=== PATIENT | female | born 1955 | race Caucasian/White ===

== ENCOUNTER 2024-08-17 06:26 | Inpatient (IN) | payer MEDICARE, OTHER ==
[~2024-08-17] VITALS: Ht 167.6 cm; Wt 90.5 kg
[2024-08-17] MEDS ORDERED: LIDOCAINE 2%-EPI 1:200,000 20 ML VIAL IJ ONE (07:09)
[2024-08-17] MEDS ORDERED: OXYMETAZOLINE HCL NASAL SPRAY 30 ML BOTTLE NS ONE (07:09)
[2024-08-17] MEDS ORDERED: ANESTHESIA TRAY IN PYXIS 1 EA TRAY MC ONE (07:09)
[2024-08-17] MEDS ORDERED: LIDOCAINE 2%-EPI 1:100,000 30 ML VIAL ONE (07:10)
[2024-08-17] MEDS ORDERED: LIDOCAINE 1%-EPI 1:100,000 20 ML VIAL ONE (07:10)
[2024-08-17] MEDS ORDERED: dexaMETHasone SOD PHOSPHATE 2 ML ONE (07:10)
[2024-08-17] MEDS ORDERED: VANCOMYCIN 1 GM VIAL ONE (07:10)
[2024-08-17] MEDS ORDERED: FENTANYL PF 250MCG/5ML AMPUL ONE (07:14)
[2024-08-17] MEDS ORDERED: ROCURONIUM BROMIDE 50 MG/5 ML ONE (07:16)
[2024-08-17] MEDS ORDERED: ONDANSETRON HCL/PF 4 MG/2 ML VIAL IVP PRN ×2 (10:30→18:30)
[2024-08-17] MEDS ORDERED: ACETAMINOPHEN 325 MG TABLET PO PRN ×2 (10:30→18:30)
[2024-08-17] MEDS ORDERED: HYDROMORPHONE 1 MG/1 ML DISP.SYRIN IV PRN (10:30)
[2024-08-17] MEDS ORDERED: IV NS 0.9% 1,000 ML IV PRN (10:30)
[2024-08-17] MEDS ORDERED: ESCI10TA PO (11:52)
[2024-08-17] MEDS ORDERED: TELM1TAB34 PO (11:52)
[2024-08-17] MEDS ORDERED: ROSU10TA2 PO (11:52)
[2024-08-17] MEDS ORDERED: OMEP1CAP25 PO (11:52)
[2024-08-17] MEDS ORDERED: TRAM50TA2 PO (11:52)
[2024-08-17] MEDS ORDERED: ATEN25TA PO (11:52)
[2024-08-17] MEDS ORDERED: ERGO500040 PO (11:52)
[2024-08-17] MEDS ORDERED: LEVO100T9 PO (11:52)
[2024-08-17] MEDS ORDERED: AMLO10TA4 PO (11:52)
[2024-08-17] MEDS ORDERED: ASPI-1169 PO (11:52)
[2024-08-17] MEDS ORDERED: IBUP-1955 PO (11:52)
[2024-08-17] MEDS ORDERED: Z GUARD REMEDY 4 OZ OINT TP PRN (18:30)
[2024-08-17 20:00] VITALS: BP 111/77; TEMP 98.2; O2SAT 97
[2024-08-17] MEDS: VANCOMYCIN 1 GM in IV D5W 250ml IV SCH (20:23)
[2024-08-17] MEDS: ATORVASTATIN 40 MG TABLET PO SCH (21:41)
[2024-08-18] MEDS: LEVOTHYROXINE SODIUM 100 MCG TABLET PO SCH (06:39)
[2024-08-18] MEDS: PANTOPRAZOLE 40 MG TABLET.DR PO SCH (06:39)
[2024-08-18 07:08] LABS: EOSINOPHILS % (AUTO) 0.1 % (0.0-6.0); HEMATOCRIT 39 % (33-45); HEMOGLOBIN 13.2 g/dL (11.5-14.8); LYMPHOCYTES # (AUTO) 1.5 K/uL (0.8-4.8); LYMPHOCYTES % (AUTO) 17.8 % (20.0-44.0); MEAN CORPUSCULAR HEMOGLOBIN 29 PG (26.0-33.0); MEAN CORPUSCULAR HGB CONC 34 g/dl (31.0-36.0); MEAN CORPUSCULAR VOLUME 86 fL (82-100); MONOCYTES # (AUTO) 0.4 K/uL (0.1-1.30); MONOCYTES % (AUTO) 5.3 % (2.0-12.0); NEUTROPHILS # (AUTO) 6.5 K/uL (1.8-8.9); NEUTROPHILS % (AUTO) 76.8 % (43.0-81.0); PLATELET COUNT (AUTO) 269 K/uL (150-450); RED BLOOD CELL COUNT(AUTO) 4.57 MIL/uL (4.0-5.2); RED CELL DISTRIBUTION WIDTH 14.5 % (11.5-15.0); WHITE BLOOD COUNT (AUTO) 8.5 K/uL (4.3-11.0)
[2024-08-18 07:10] LABS: CALCIUM, SERUM 8.6 mg/dL (8.5-10.1); CREATININE 0.6 mg/dL (0.6-1.3); MAGNESIUM 2.1 mg/dL (1.8-2.4); PHOSPHORUS 3.2 mg/dL (2.5-4.9); POTASSIUM 3.9 mmol/L (3.5-5.1)
[2024-08-18 08:00] VITALS: BP 125/80; TEMP 98.1; O2SAT 100
[2024-08-18 09:08] VITALS: BP 125/80
[2024-08-18] MEDS: ATENOLOL 50 MG TABLET PO SCH (09:08)
[2024-08-18] MEDS: AMLODIPINE BESYLATE 10 MG TABLET PO SCH (09:08)
[2024-08-18] MEDS ORDERED: ESCITALOPRAM OXALATE (10 MG) 10 MG TABLET PO SCH (18:00)
== END 2024-08-18 12:45 | disposition home or self-care (01) | DRG 141 ==
LOC: DS 06:26 → MED 10:03
PROVIDERS: ADMIT Nurse Practitioner Acute Care; ATTEND Nurse Practitioner Acute Care
PROC: 0NSR04Z Reposition Maxilla with Internal Fixation Device, Open Approach (ICD-10-PCS; 2024-08-17)
PROC: 0N5V0ZZ Destruction of Left Mandible, Open Approach (ICD-10-PCS; 2024-08-17)
PROC: 0N5T0ZZ Destruction of Right Mandible, Open Approach (ICD-10-PCS; 2024-08-17)
PROC: 0NBR0ZX Excision of Maxilla, Open Approach, Diagnostic (ICD-10-PCS; 2024-08-17)
PROC: 0NSV04Z Reposition Left Mandible with Internal Fixation Device, Open Approach (ICD-10-PCS; 2024-08-17)
PROC: 0NUR07Z Supplement Maxilla with Autologous Tissue Substitute, Open Approach (ICD-10-PCS; 2024-08-17)
PROC: 0NUT07Z Supplement Right Mandible with Autologous Tissue Substitute, Open Approach (ICD-10-PCS; 2024-08-17)
PROC: 0NST04Z Reposition Right Mandible with Internal Fixation Device, Open Approach (ICD-10-PCS; principal; 2024-08-17 07:30)
DX: S02.40DA Maxillary fracture, left side, initial encounter for closed fracture (principal); M87.9 Osteonecrosis, unspecified; M27.2 Inflammatory conditions of jaws; S02.609A Fracture of mandible, unspecified, initial encounter for closed fracture; K21.9 Gastro-esophageal reflux disease without esophagitis; E03.9 Hypothyroidism, unspecified; E78.5 Hyperlipidemia, unspecified; Z87.891 Personal history of nicotine dependence; Z82.3 Family history of stroke; Z90.710 Acquired absence of both cervix and uterus; Z79.82 Long term (current) use of aspirin; Z79.890 Hormone replacement therapy; M27.40 Unspecified cyst of jaw; Z79.899 Other long term (current) drug therapy; D16.5 Benign neoplasm of lower jaw bone; X58.XXXA Exposure to other specified factors, initial encounter; Y92.9 Unspecified place or not applicable; J32.0 Chronic maxillary sinusitis
CPT/HCPCS: 36415; 80048-TC; 83735-TC; 84100-TC; 85025-TC; A4223; C1713; G0378; J1100; J2704; J3010; J3370; J3490; J7050; J7060

== ENCOUNTER 2024-12-28 07:43 | Inpatient (IN) | payer MEDICARE, BC ==
[~2024-12-28] VITALS: Ht 162.6 cm; Wt 90.7 kg
[~2024-12-28 07:43] MED LIST: AMLO10TA4 PO; ASPI-1169 PO; ATEN25TA PO; ERGO500040 PO; ESCI10TA PO; IBUP-1955 PO; LEVO100T9 PO; OMEP1CAP25 PO; ROSU10TA2 PO; TELM1TAB34 PO; TRAM50TA2 PO
[2024-12-28] MEDS ORDERED: VANCOMYCIN 1 GM VIAL ONE (10:15)
[2024-12-28] MEDS ORDERED: dexaMETHasone SOD PHOSPHATE 2 ML ONE (10:15)
[2024-12-28] MEDS ORDERED: LIDOCAINE 2%-EPI 1:100,000 30 ML VIAL ONE (10:15)
[2024-12-28] MEDS ORDERED: OXYMETAZOLINE HCL NASAL SPRAY 30 ML BOTTLE NS ONE (10:15)
[2024-12-28] MEDS ORDERED: ROCURONIUM BROMIDE 50 MG/5 ML ONE (10:16)
[2024-12-28] MEDS ORDERED: HYDROMORPHONE 1 MG/1 ML DISP.SYRIN IV PRN (13:00)
[2024-12-28] MEDS ORDERED: ONDANSETRON HCL/PF 4 MG/2 ML VIAL IV PRN (13:00)
[2024-12-28] MEDS ORDERED: GABA300C PO (13:53)
[2024-12-28] MEDS: IV NS 0.9% 1,000 ML IV PRN (13:58)
[2024-12-28] MEDS ORDERED: ANESTHESIA TRAY IN PYXIS 1 EA TRAY MC ONE (14:27)
[2024-12-28] MEDS ORDERED: GABAPENTIN 300 MG CAPSULE PO PRN (15:00)
[2024-12-28] MEDS ORDERED: ACETAMINOPHEN 325 MG TABLET PO PRN (15:00)
[2024-12-28 16:00] VITALS: BP 134/77; TEMP 98.2; O2SAT 92
[2024-12-28 20:00] VITALS: BP 163/83; TEMP 97.2; O2SAT 95
[2024-12-28] MEDS: VANCOMYCIN 1 GM in IV D5W 250ml IV SCH (21:42)
[2024-12-29 07:30] VITALS: BP 127/85; TEMP 98.1; O2SAT 97
[2024-12-29] MEDS: LEVOTHYROXINE SODIUM 100 MCG TABLET PO SCH (07:39)
[2024-12-29 08:06] VITALS: BP 127/85
[2024-12-29] MEDS: HYDROCHLOROTHIAZIDE 25 MG TABLET PO SCH (08:06)
[2024-12-29] MEDS: ATENOLOL 25 MG TABLET PO SCH (08:06)
[2024-12-29] MEDS: LOSARTAN POTASSIUM 50 MG TABLET PO SCH (08:06)
== END 2024-12-29 12:00 | disposition home or self-care (01) | DRG 497 ==
LOC: DS 07:43 → MED 11:13
PROVIDERS: ADMIT Dentist Oral and Maxillofacial Surgery; ATTEND Dentist Oral and Maxillofacial Surgery
PROC: 0N5V0ZZ Destruction of Left Mandible, Open Approach (ICD-10-PCS; 2024-12-28)
PROC: 0N5T0ZZ Destruction of Right Mandible, Open Approach (ICD-10-PCS; 2024-12-28)
PROC: 0NPW04Z Removal of Internal Fixation Device from Facial Bone, Open Approach (ICD-10-PCS; 2024-12-28)
PROC: 0N5R0ZZ Destruction of Maxilla, Open Approach (ICD-10-PCS; principal; 2024-12-28 10:30)
DX: T84.69XA Infection and inflammatory reaction due to internal fixation device of other site, initial encounter (principal); M27.2 Inflammatory conditions of jaws; I10 Essential (primary) hypertension; E78.5 Hyperlipidemia, unspecified; E03.9 Hypothyroidism, unspecified; Y83.8 Other surgical procedures as the cause of abnormal reaction of the patient, or of later complication, without mention of misadventure at the time of the procedure; Y92.009 Unspecified place in unspecified non-institutional (private) residence as the place of occurrence of the external cause; D16.4 Benign neoplasm of bones of skull and face; Z90.710 Acquired absence of both cervix and uterus; Z88.6 Allergy status to analgesic agent; Z87.891 Personal history of nicotine dependence; M89.38 Hypertrophy of bone, other site
CPT/HCPCS: A4338; G0378; J0690; J1100; J2704; J3373; J3490; J7030; J7060